=== PATIENT | male | born 1970 | race Caucasian/White ===

== ENCOUNTER 2017-04-11 13:50 | Emergency (ER) | payer SELFPAY ==
[~2017-04-11] VITALS: Ht 172.7 cm; Wt 85.0 kg
[2017-04-11 14:06] VITALS: BP 131/90
== END 2017-04-11 18:02 | disposition left against medical advice (07) ==
LOC: ER 14:11
DX: R10.9 Unspecified abdominal pain (principal); Z53.21 Procedure and treatment not carried out due to patient leaving prior to being seen by health care provider